=== PATIENT | female | born 1965 | race Caucasian/White ===

== ENCOUNTER → 2018-01-23 | Outpatient (CLI) | payer OTHER ==
[2018-01-23 16:26] LABS: CSF PROTEIN 42 mg/dL (15-45)
[2018-01-23 16:32] LABS: GLUCOSE, CSF 72 mg/dL (40-80)
== END | disposition home or self-care (01) ==
LOC: RAD 14:33
PROVIDERS: Specialist
PROC: 009U3ZX Drainage of Spinal Canal, Percutaneous Approach, Diagnostic (ICD-10-PCS; principal; 2018-01-23)
DX: H53.432 Sector or arcuate defects, left eye (principal)
CPT/HCPCS: 62270; 77003; 82945; 83916 90; 84157; 87070; 87205; 87210; 88108